=== PATIENT | male | born 1960 | race Caucasian/White ===

== ENCOUNTER 2023-04-22 01:47 | Day surgery (SDC) | payer OTHER, SELFPAY ==
[2023-04-15 09:43] VITALS: BMI 21.8
[2023-04-22 10:54] VITALS: BP 142/69; PULSE 74; RESP 17; TEMP 36.4; O2SAT 100; BMI 20.8
[2023-04-22] MEDS: LACTATED RINGERS 1,000 ML 150 ML IV CONT (11:02)
--- NOTE | 2023-04-22 11:32 | PM.HPGS ---
History of Present Illness History of Present Illness Consent: Risks, benefits, and alternatives have been discussed and questions answered. Patient agrees to proceed with procedure. Chief complaint: diarrhea, hemorrhage of anus and rectum Narrative: Unruly Conde is a 62 year old male Presents for colonoscopy. Patient reports over the last 3 months his bowel habits have changed. He now has loose, chunky stools in the morning. He will have several episodes associated with some blood admixed with this. Later in the day will have formed stools with no blood. He denies any significant abdominal pain. Reports no specific precipitating factors. He denies a fever. He does report frequent travel with work in a great deal of stress. He notes that his alcohol intake increased during this interval of time. He now is decreased his alcohol intake with some modest improvement. Patient presents today for colonoscopy. Family history is noncontributory. Review of Systems Review of Systems: Review of systems noncontributory. [facility] Past Medical History Medical History (Updated 04/22/23 @ 11:34 by Kali Melgar MD) Hyperlipidemia Surgical History Surgical History History of tonsillectomy Family History Family History Father Cerebrovascular accident Heart disease Sibling Family history of premature coronary heart disease Hypertension Grandparent Asthma Cancer Mother Hypertension Alzheimer disease Other Family history of cardiovascular disease Family history of coronary artery disease Social History Social History (Updated 02/26/23 @ 10:47 by Naima Meraz) Years smoked: 30 Smoking status: Former smoker Smoking end date: 09/22/07 Alcohol intake: current Drinks per week: 14 Substance use type: does not use Living arrangements: with family Occupation/Education: occupation Gender identity (if verbalized by the patient): Male Spiritual care concerns: No Meds Home Medications and Allergies Home Medications Medication Instructions Recorded Confirmed Type Neuro Health 2 cap BYMOUTH DAILY 01/15/23 04/22/23 History cholecalciferol (vitamin D3) 125 125 mcg PO DAILY 01/15/23 04/22/23 History mcg (5,000 unit) capsule coenzyme Q10 200 mg capsule (Co 300 mg PO DAILY 01/15/23 04/22/23 History Q-10) [id number] 120 mcg-lutein 1 tablet PO DAILY 01/15/23 04/22/23 History 150 mcg-herb 50 mg chewable tablet (Alive Men's 50 Plus Multivitamin) atorvastatin 20 mg tablet 20 mg PO DAILY #90 tabs 02/26/23 04/22/23 Rx inulin 2 gram chewable tablet 4 g PO DAILY 04/15/23 04/22/23 History (Fiber Gummies) niacin 500 mg tablet 500 mg PO DAILY 04/15/23 04/22/23 History turmeric 400 mg capsule 400 mg PO DAILY 04/15/23 04/22/23 History vitamin B complex (B 1 tablet PO DAILY 04/15/23 04/22/23 History Complex-Vitamin B12 tablet) Allergies Allergy/AdvReac Type Severity Reaction Status Date / Time No Known Allergies Allergy Verified 04/22/23 10:51 Vital Signs Vital Signs - 24 hr 04/22/23 10:54 Temperature 97.6 F Pulse Rate 74 Respiratory Rate 17 Blood Pressure 142/69 H Pulse Oximetry 100 Oxygen Delivery Room Air Exam Narrative: Physical exam reveals patient to be alert. Vital signs stable. HEENT exam is unremarkable. Patient is anicteric. Lungs are clear to auscultation and percussion. Heart is without murmur or extra sounds. Abdomen bowel sounds are present soft nontender with no organomegaly. Digital external rectal exam normal. Assessment and Plan Assessment and plan (1) Diarrhea: Code(s): R19.7 - Diarrhea, unspecified Status: Acute Assessment and Plan: Patient reports a change in his bowel habits with a tendency towards diarrhea stool. Plan for colonoscopy to assess more thoroughly. If diar
--- NOTE | 2023-04-22 11:40 | WPDANESEPPF ---
Anes - Initial Pre Proc Eval Procedure: Operation Date: 04/22/23 12:30 Proposed Procedures p Colonoscopy - Kali Melgar MD Date/Time: 04/22/23 11:40 Surgeon: Kali Melgar MD Pre Op Diagnosis: diarrhea, hemorrhage of anus and rectum Patient Data Age: 62 Gender: M Height: 1.78 m Weight: 65.9 kg Last Vital Signs Temp 97.6 F 04/22/23 10:54 Pulse 74 04/22/23 10:54 Resp 17 04/22/23 10:54 BP 142/69 H 04/22/23 10:54 Pulse Ox 100 04/22/23 10:54 O2 Del Method Room Air 04/22/23 10:54 Allergies Allergy/AdvReac Type Severity Reaction Status Date / Time No Known Allergies Allergy Verified 04/22/23 10:51 Home Medications Medication Instructions Recorded Confirmed Type Neuro Health 2 cap BYMOUTH DAILY 01/15/23 04/22/23 History cholecalciferol (vitamin D3) 125 125 mcg PO DAILY 01/15/23 04/22/23 History mcg (5,000 unit) capsule coenzyme Q10 200 mg capsule (Co 300 mg PO DAILY 01/15/23 04/22/23 History Q-10) [id number] 120 mcg-lutein 1 tablet PO DAILY 01/15/23 04/22/23 History 150 mcg-herb 50 mg chewable tablet (Alive Men's 50 Plus Multivitamin) atorvastatin 20 mg tablet 20 mg PO DAILY #90 tabs 02/26/23 04/22/23 Rx inulin 2 gram chewable tablet 4 g PO DAILY 04/15/23 04/22/23 History (Fiber Gummies) niacin 500 mg tablet 500 mg PO DAILY 04/15/23 04/22/23 History turmeric 400 mg capsule 400 mg PO DAILY 04/15/23 04/22/23 History vitamin B complex (B 1 tablet PO DAILY 04/15/23 04/22/23 History Complex-Vitamin B12 tablet) Patient hx anesthesia problems: none Family hx anesthesia problems: none Results Review: All pre-operative results and documents have been reviewed as part of the pre-operative evaluation. PMFSH Past Medical History Medical History (Updated 04/22/23 @ 11:34 by Kali Melgar MD) Hyperlipidemia Surgical History Surgical History History of tonsillectomy Family History Family History Father Cerebrovascular accident Heart disease Sibling Family history of premature coronary heart disease Hypertension Grandparent Asthma Cancer Mother Hypertension Alzheimer disease Other Family history of cardiovascular disease Family history of coronary artery disease Social History Social History (Updated 02/26/23 @ 10:47 by Naima Meraz) Years smoked: 30 Smoking status: Former smoker Smoking end date: 09/22/07 Alcohol intake: current Drinks per week: 14 Substance use type: does not use Living arrangements: with family Occupation/Education: occupation Gender identity (if verbalized by the patient): Male Spiritual care concerns: No Anes - Eval Final PreProcedure Day of Procedure 04/22/23 11:40 Patient weight: normal Heart: regular rate and rhythm Lungs: clear to auscultation Airway: Mallampati scale class II Neurological: alert and oriented Last oral intake: >/= 8 hours ASA classification: II Emergent: no Anesthetic plan: proceed Anesthesia type and monitoring: general GIVS and standard monitoring Results Review: All pre-operative results and documents have been reviewed as part of the pre-operative evaluation. Informed Consent: The patient's anesthetic plan and its attendant risks and benefits were discussed with the patient/family/POA. Questions were solicited and answers provided to the satisfaction of the patient/family/POA.
[2023-04-22 12:40] VITALS: BP 97/62; PULSE 77; RESP 18; O2SAT 98
[2023-04-22 12:50] VITALS: BP 115/76; PULSE 75; RESP 24; O2SAT 99
[2023-04-22 13:00] VITALS: BP 123/71; PULSE 63; RESP 18; O2SAT 100
== END 2023-04-22 13:19 | disposition home or self-care (01) ==
PROVIDERS: PCP Family Medicine; Visit Provider Internal Medicine Gastroenterology
PROC: 0DJD8ZZ Inspection of Lower Intestinal Tract, Via Natural or Artificial Opening Endoscopic (ICD-10-PCS; CPT 45378; principal; 2023-04-22 12:30)
DX: K51.30 Ulcerative (chronic) rectosigmoiditis without complications (principal); K64.8 Other hemorrhoids; K57.30 Diverticulosis of large intestine without perforation or abscess without bleeding; E78.5 Hyperlipidemia, unspecified; Z87.891 Personal history of nicotine dependence
CPT/HCPCS: 45380; 88305; J2704; J7120

== ENCOUNTER 2024-12-14 01:44 | Day surgery (SDC) | payer OTHER, SELFPAY ==
[2024-12-06 10:10] VITALS: BMI 24.5
[2024-12-14 07:07] VITALS: BP 157/85; PULSE 73; RESP 18; TEMP 36.1; O2SAT 99; BMI 22.7
[2024-12-14] MEDS: LACTATED RINGERS 1,000 ML 150 ML IV CONT (07:16)
--- NOTE | 2024-12-14 07:16 | WPDANESEPPF ---
Anes - Initial Pre Proc Eval Procedure: Operation Date: 12/14/24 08:00 Proposed Procedures p Colonoscopy - Tino Yeager MD Date/Time: 12/14/24 07:16 Surgeon: Tino Yeager MD Pre Op Diagnosis: Left sided colitis w/o complications Patient Data Age: 64 Gender: M Height: 1.78 m Weight: 71.8 kg Last Vital Signs Temp 36.1 C L 12/14/24 07:07 Pulse 73 12/14/24 07:07 Resp 18 12/14/24 07:07 BP 157/85 H 12/14/24 07:07 Pulse Ox 99 12/14/24 07:07 O2 Del Method Room Air 12/14/24 07:07 Allergies Allergy/AdvReac Type Severity Reaction Status Date / Time No Known Allergies Allergy Verified 12/14/24 07:06 Home Medications ?Medication ?Instructions ?Recorded ?Confirmed ?Type Neuro Health 2 cap BYMOUTH DAILY 01/15/23 12/14/24 History cholecalciferol (vitamin D3) 125 125 mcg PO DAILY 01/15/23 12/14/24 History mcg (5,000 unit) capsule coenzyme Q10 200 mg capsule (Co 400 mg PO DAILY 01/15/23 12/14/24 History Q-10) [id number] 120 mcg-lutein 1 tablet PO DAILY 01/15/23 12/14/24 History 150 mcg-herb 50 mg chewable tablet (Alive Men's 50 Plus Multivitamin) niacin 500 mg tablet 500 mg PO DAILY 04/15/23 12/14/24 History turmeric 400 mg capsule 400 mg PO DAILY 04/15/23 12/14/24 History vitamin B complex (B 1 tablet PO DAILY 04/15/23 12/14/24 History Complex-Vitamin B12 tablet) mesalamine 400 mg capsule (with 800 mg (2 x 400 mg) PO TID #180 ea 07/07/24 12/14/24 Rx delayed release tablets inside) (Delzicol) atorvastatin 20 mg tablet 20 mg PO DAILY #90 tabs 12/01/24 12/14/24 Rx psyllium husk 3.4 gram/5.4 gram 1 tbsp PO DAILY 12/06/24 12/14/24 History oral powder (Metamucil) Patient hx anesthesia problems: none Family hx anesthesia problems: none Results Review: All pre-operative results and documents have been reviewed as part of the pre-operative evaluation. [facility] Past Medical History Medical History (Updated 12/14/24 @ 07:18 by Ivan Arreola MD) Left sided ulcerative colitis Elevated liver enzymes Hyperlipidemia Surgical History Surgical History History of tonsillectomy Family History Family History Father Cerebrovascular accident Heart disease Sibling Family history of premature coronary heart disease Hypertension Grandparent Asthma Cancer Mother Hypertension Alzheimer disease Other Family history of cardiovascular disease Family history of coronary artery disease Social History Social History Years smoked: 30 Smoking status: Former smoker Smoking end date: 09/22/07 Alcohol intake: current Drinks per week: 14 Substance use type: does not use Living arrangements: with family Occupation/Education: occupation Gender identity (if verbalized by the patient): Male Spiritual care concerns: No Anes - Eval Final PreProcedure Day of Procedure 12/14/24 07:16 Patient weight: normal Heart: regular rate and rhythm Lungs: clear to auscultation Airway: Mallampati scale class II Neurological: alert and oriented Last oral intake: >/= 8 hours ASA classification: III Emergent: no Anesthetic plan: proceed Anesthesia type and monitoring: general GIVS and standard monitoring Results Review: All pre-operative results and documents have been reviewed as part of the pre-operative evaluation. Informed Consent: The patient's anesthetic plan and its attendant risks and benefits were discussed with the patient/family/POA. Questions were solicited and answers provided to the satisfaction of the patient/family/POA.
--- NOTE | 2024-12-14 08:09 | PM.HPGS ---
History of Present Illness History of Present Illness Consent: Risks, benefits, and alternatives have been discussed and questions answered. Patient agrees to proceed with procedure. Chief complaint: Left sided colitis w/o complications Narrative: Unruly Conde is a 64 year old male here for another colonoscopy, diagnosed with left-sided ulcerative colitis by colonoscopy in the spring. Doing well on mesalamine. Review of Systems Review of Systems: All systems reviewed & are unremarkable except as noted in HPI and below PMFSH Past Medical History Medical History (Updated 12/14/24 @ 08:10 by iTno Yeager MD) History of colitis Left sided ulcerative colitis Elevated liver enzymes Hyperlipidemia Surgical History Surgical History History of tonsillectomy Family History Family History Father Cerebrovascular accident Heart disease Sibling Family history of premature coronary heart disease Hypertension Grandparent Asthma Cancer Mother Hypertension Alzheimer disease Other Family history of cardiovascular disease Family history of coronary artery disease Social History Social History Years smoked: 30 Smoking status: Former smoker Smoking end date: 09/22/07 Alcohol intake: current Drinks per week: 14 Substance use type: does not use Living arrangements: with family Occupation/Education: occupation Gender identity (if verbalized by the patient): Male Spiritual care concerns: No Meds Home Medications and Allergies Home Medications ?Medication ?Instructions ?Recorded ?Confirmed ?Type Neuro Health 2 cap BYMOUTH DAILY 01/15/23 12/14/24 History cholecalciferol (vitamin D3) 125 125 mcg PO DAILY 01/15/23 12/14/24 History mcg (5,000 unit) capsule coenzyme Q10 200 mg capsule (Co 400 mg PO DAILY 01/15/23 12/14/24 History Q-10) [id number] 120 mcg-lutein 1 tablet PO DAILY 01/15/23 12/14/24 History 150 mcg-herb 50 mg chewable tablet (Alive Men's 50 Plus Multivitamin) niacin 500 mg tablet 500 mg PO DAILY 04/15/23 12/14/24 History turmeric 400 mg capsule 400 mg PO DAILY 04/15/23 12/14/24 History vitamin B complex (B 1 tablet PO DAILY 04/15/23 12/14/24 History Complex-Vitamin B12 tablet) mesalamine 400 mg capsule (with 800 mg (2 x 400 mg) PO TID #180 ea 07/07/24 12/14/24 Rx delayed release tablets inside) (Delzicol) atorvastatin 20 mg tablet 20 mg PO DAILY #90 tabs 12/01/24 12/14/24 Rx psyllium husk 3.4 gram/5.4 gram 1 tbsp PO DAILY 12/06/24 12/14/24 History oral powder (Metamucil) Allergies Allergy/AdvReac Type Severity Reaction Status Date / Time No Known Allergies Allergy Verified 12/14/24 07:06 Vital Signs Vital Signs - 24 hr 12/14/24 07:07 Temperature 97 F L Pulse Rate 73 Respiratory Rate 18 Blood Pressure 157/85 H Pulse Oximetry 99 Oxygen Delivery Room Air Exam Const: General: comfortable and no acute distress HENMT: Face/Nose/Sinus: Normal nares present Eyes: General: appearance normal, both eyes and all related structures Neck: Neck: no JVD Resp: Auscultation: clear to auscultation bilaterally Cardio: Rate: regular rate Rhythm: regular rhythm GI: Inspection: non-distended GI Palp: Yes Soft to palpation Skin: General skin exam: normal color Neuro: Speech: normal speech Extrem: General: normal to inspection Psych: Mental Status: mental status grossly normal Assessment and Plan Assessment and plan (1) History of colitis: Code(s): Z87.19 - Personal history of other diseases of the digestive system Status: Acute Assessment and Plan: colonoscopy
[2024-12-14 08:22] VITALS: BP 104/63; PULSE 78; RESP 27; O2SAT 98
[2024-12-14 08:32] VITALS: BP 104/32; PULSE 84; RESP 16; O2SAT 98
[2024-12-14 08:42] VITALS: BP 135/75; PULSE 70; RESP 16; O2SAT 98
== END 2024-12-14 08:59 | disposition home or self-care (01) ==
PROVIDERS: PCP Family Medicine; Referring Provider Internal Medicine Gastroenterology; Visit Provider Internal Medicine Gastroenterology
PROC: 0DJD8ZZ Inspection of Lower Intestinal Tract, Via Natural or Artificial Opening Endoscopic (ICD-10-PCS; CPT 45378; principal; 2024-12-14 08:00)
DX: K57.30 Diverticulosis of large intestine without perforation or abscess without bleeding (principal); K64.8 Other hemorrhoids; Z87.19 Personal history of other diseases of the digestive system; Z87.891 Personal history of nicotine dependence
CPT/HCPCS: 45380; 88305; J2003; J2704; J7120

== ENCOUNTER 2025-05-13 16:42 | Emergency (ER) | payer OTHER, SELFPAY ==
--- NOTE | ~2025-05-13 | CT_ITS ---
EXAMINATION: CT diagnostic chest w con DATE: 05/13/2025 18:35 INDICATION: Abnormal x-ray with nodule left lower lung TECHNIQUE: Computed tomography (CT) of the chest was performed without intravenous contrast. The dose-length product was 174.15 mGy-cm. Automated exposure control and iterative reconstruction technique were employed. COMPARISON: Chest x-ray dated 05/13/2025 FINDINGS: No significant vascular abnormality. Heart size normal. No significant pleural or pericardial effusion. Upper abdomen is unremarkable. No suspicious pulmonary nodules or masses. No pneumothorax. No focal consolidation. Nodular density seen on chest x-ray likely corresponds to prominent nipple shadow. No endobronchial lesions. Severe dextroscoliosis of the thoracolumbar spine. IMPRESSION: 1. No acute cardiopulmonary disease. Reviewed, dictated and finalized at location O.
--- NOTE | ~2025-05-13 | XR_ITS ---
EXAMINATION: XR chest 2V 05/13/2025 17:14 INDICATION: Syncope TECHNIQUE:Frontal and lateral images of the chest were obtained. COMPARISON: None available FINDINGS: There is a 1.2 cm nodular density projecting over the left lower lung. Differential includes pulmonary nodule or artifact from overlapping structures. No comparison studies are available. A chest CT is recommended. No pneumothorax. No pleural effusion. No free air under the diaphragm. No focal pulmonary consolidation. IMPRESSION: 1: There is a 1.2 cm nodular density projecting over the left lower lung. Differential includes pulmonary nodule or artifact from overlapping structures. No comparison studies are available. A chest CT is recommended. 2. No acute pulmonary process identified. Reviewed, dictated and finalized at location Q. IMPRESSION: 1: There is a 1.2 cm nodular density projecting over the left lower lung. Diff erential includes pulmonary nodule or artifact from overlapping structures. No comparison studies are available. A chest CT is recommended. 2. No acute pulmonary process identified.
--- NOTE | 2025-05-13 16:49 | ECG_ITS ---
Test Date: 2025-05-13 16:52:12 Measurements Intervals [place] Rate: 84 P: 54 OR: 163 QRS: 17 QRSD: 98 T: 57 QT: 353 QTc: 419 Interpretive Statements SINUS RHYTHM INCOMPLETE RIGHT BUNDLE BRANCH BLOCK BASELINE ARTIFACT- I, II, III, AVR, AVL, AVF BORDERLINE ECG No previous ECG available for comparison Electronically Signed On 05-13-2025 17:26:39 CDT by Diaz Tate D.O.
[2025-05-13 16:51] VITALS: BP 173/87; PULSE 90; RESP 12; TEMP 36.9; O2SAT 100
[2025-05-13 17:03] VITALS: PULSE 81
[2025-05-13 17:05] VITALS: BP 167/84; PULSE 84
[2025-05-13 17:06] VITALS: BP 171/93; BP 172/88; PULSE 78; PULSE 88
[2025-05-13 17:14] LABS: Hematocrit 38.5 % (42.0-52.0); Hemoglobin 12.6 g/dL (14.0-18.0); Immature Granulocyte Percent A 0.3 % (0-0.5); Lymphocytes Absolute Auto 1.83 K/mm3 (0.9-3.2); Mean Corpuscular HGB Conc 32.7 g/dl (32-36); Mean Corpuscular Hemoglobin 31.3 pg (26-34); Mean Corpuscular Volume 95.5 fl (80-100); Nucleated Red Blood Cells Absolute Auto 0.000 K/mm3 (0.0-0.012); Nucleated Red Blood Cells Perc 0.0 % (0.0-0.2); Platelet Count Result 258 k/mm3 (150-375); Red Blood Count 4.03 M/mm3 (4.6-6.20); White Blood Count 6.1 K/mm3 (4.5-10.0)
--- NOTE | 2025-05-13 17:29 | ED.ARRPALP ---
HPI - Arrhythmia/Palpitations General Chief Complaint: Arrhythmia/Palpitations Stated Complaint: near-syncope Time Seen by Provider: 05/13/25 17:08 History of Present Illness HPI narrative: 64-year-old male with history of hyperlipidemia had ulcerative colitis presents emergency department for an episode of lightheadedness that occurred at 3:00 p.m. today while playing golf. Patient states he are cough for several out to swing his bubbling had a episode of lightheadedness, blurred vision and ?seeing stars?. He denies syncope. He states he went and sat in the golf cart and his symptoms resolved within 1 minute. He states he finished the rest of his round, came home to his and told her what had happened. He then contacted his PCP who advised to come to the ED for further evaluation. The patient states he has not had any more episodes since and feels in his normal state of health. He denies any associated chest pain, shortness of breath, headache, focal numbness or weakness, abdominal pain, fever, cough or congestion, lower extremity edema. He does note he has chronic episodes of small amounts of bright red blood on the toilet paper after having a bowel movement that occurs about once a week when he strains. He otherwise denies any melena or large amounts of hematochezia. Related Data Home Medications ?Medication ?Instructions ?Recorded ?Confirmed ?Last Taken ?Type Neuro Health 2 cap BYMOUTH DAILY 01/15/23 12/14/24 12/13/24 History cholecalciferol (vitamin D3) 125 125 mcg PO DAILY 01/15/23 12/14/24 12/13/24 History mcg (5,000 unit) capsule coenzyme Q10 200 mg capsule (Co 400 mg PO DAILY 01/15/23 12/14/24 12/13/24 History Q-10) [id number] 120 mcg-lutein 1 tablet PO DAILY 01/15/23 12/14/24 12/13/24 History 150 mcg-herb 50 mg chewable tablet (Alive Men's 50 Plus Multivitamin) niacin 500 mg tablet 500 mg PO DAILY 04/15/23 12/14/24 12/13/24 History turmeric 400 mg capsule 400 mg PO DAILY 04/15/23 12/14/24 12/13/24 History vitamin B complex (B 1 tablet PO DAILY 07/12/14/24 12/13/24 History Complex-Vitamin B12 tablet) psyllium husk 3.4 gram/5.4 gram 1 tbsp PO DAILY 12/06/24 12/14/24 12/13/24 History oral powder (Metamucil) Allergies Allergy/AdvReac Type Severity Reaction Status Date / Time No Known Allergies Allergy Verified 05/13/25 16:44 Review of Systems Review of Systems: All systems reviewed & are unremarkable except as noted in HPI and below PMFSH Past Medical History Medical History Left sided colitis History of colitis Left sided ulcerative colitis Elevated liver enzymes Hyperlipidemia Surgical History Surgical History History of tonsillectomy Family History Family History Father Cerebrovascular accident Heart disease Sibling Family history of premature coronary heart disease Hypertension Grandparent Asthma Cancer Mother Hypertension Alzheimer disease Other Family history of cardiovascular disease Family history of coronary artery disease Social History Social History Smoking packs per day: 1 Smoking cigarettes per day: 20.0 Years smoked: 30 Smoking pack-years: 30.00 Smoking status: Former smoker Tobacco type: cigarettes Smoking end date: 09/22/07 Alcohol intake: current Drinks per week: 14 Substance use: never Substance use type: does not use Living arrangements: with family Occupation/Education: occupation Gender identity (if verbalized by the patient): Male Spiritual care concerns: No Exam Narrative: GENERAL: Well-appearing, well-nourished, and in no acute distress. HEAD: Normocephalic, atraumatic. EYES: PERRLA and EOMI. ENT: Nares clear, no rhinorrhea or epistaxis. Mucous membranes moist. Bilateral TMs are varela nonbulging with normal canals. NECK: Supple. CHEST: Clear to auscultation. No respiratory distress. HEART: Regular rate and rhythm. No murmur heard. Normal peripheral pulses. ABDOMEN: Soft, nontender, nondistended, normal active bowel sounds. EXTREMITIES: Normal range of motion. No edema. SKIN: Warm, dry, no rash. NEURO: No focal deficits. Alert and oriented x4. Cranial nerves 2-12 intact. Strength 5/5 BUE and BLE. Sensation intact throughout. No ataxia Course Vital Signs Vital signs: Vital Signs Temperature 98.5 F 05/13/25 16:51 Pulse Rate 90 05/13/25 16:51 Respiratory Rate 12 05/13/25 16:51 Blood Pressure 173/87 H 05/13/25 16:51 Pulse Oximetry 100 05/13/25 16:51 Oxygen Delivery Room Air 05/13/25 16:51 Temperature 98.5 F 05/13/25 16:51 Pulse Rate 77 05/13/25 17:59 Respiratory Rate 13 05/13/25 17:59 Blood Pressure 163/79 H 05/13/25 17:59 Pulse Oximetry 100 05/13/25 17:59 Oxygen Delivery Room Air 05/13/25 16:51 MDM - Arrhythmia/Palpitations MDM Narrative Medical decision making narrative: 64-year-old male history of hyperlipidemia and ulcerative colitis presents to the ED for a transient episode of lightheadedness that occurred at 1500 today while playing golf. Episode lasted 1 minute and self-resolved. Patient has not had any symptoms since and states he is in his normal state of health. He denies syncope. EKG shows normal sinus rhythm with rate of 84 ppm, normal CA interval, normal QRS duration, normal QTC, ischemic changes. Troponin is undetectable. D-dimer within normal limits, wells score is low risk. CBC shows no leukocytosis. Hemoglobin is 12.6 with normal MCV. Last hemoglobin on the chart was from 10/05/2024 and was 13.3. Patient does note rare and occasional bright red blood on the toilet paper after straining when having a bowel movement. He denies any current rectal bleeding or melena. I did offer to perform a rectal exam to evaluate for GI bleed as possible source of patient's symptoms however patient politely declined. Chemistries are unremarkable no electrolyte derangements. Magnesium is within normal limits. Chest x-ray shows no acute pulmonary process identified. Incidentally there is 1.2 cm nodular density projecting over the left lower lung with recommendations for a chest CT for further evaluation. Chest CT shows no acute cardiopulmonary disease. Radiologist notes that the nodular density seen on chest x-ray likely corresponds to prominent nipple shadow. Orthostatic vital signs are normal. Patient was updated on results. He is given a L of fluids. Patient remains asymptomatic and is ambulatory in the ED. He is very well appearing. Advised to follow-up closely with his PCP and discussed strict ED return precautions. He is agreeable with the plan verbalized understanding. Discharged in stable condition. Lab Data 05/13/25 17:04 05/13/25 17:04 Labs: Lab Results 05/13/25 Range/Units 17:04 WBC 6.1 (4.5-10.0) K/mm3 RBC 4.03 L (4.6-6.20) M/mm3 Hgb 12.6 L (14.0-18.0) g/dL Hct 38.5 L (42.0-52.0) % MCV 95.5 (80-100) fl MCH 31.3 (26-34) pg MCHC 32.7 (32-36) g/dl RDW 13.1 (11.5-14.5) % Plt Count 258 (150-375) k/mm3 MPV 9.2 (7.4-10.4) fl Immature Gran % (Auto) 0.3 (0-0.5) % Neut % (Auto) 57.6 (45.5-73.1) % Lymph % (Auto) 30.0 (18.3-44.2) % Mccormick % (Auto) 9.0 H (2.6-8.5) % Eos % (Auto) 2.8 (0-4.4) % Baso % (Auto) 0.3 (0.2-1.2) % Lymph # (Auto) 1.83 (0.9-3.2) K/mm3 Mccormick # (Auto) 0.6 (0.1-0.6) K/mm3 Eos # (Auto) 0.2 (0-0.3) K/mm3 Baso # (Auto) 0.0 (0.0-0.1) K/mm3 Abs Immat Gran (auto) 0.02 (0.00-0.031) K/mm3 Absolute Neuts (auto) 3.5 (1.3-6.7) K/mm3 Absolute Nucleated RBC 0.000 (0.0-0.012) K/mm3 Nucleated RBC % 0.0 (0.0-0.2) % PT 13.4 (11.1-14.7) Seconds INR 1.0 APTT 27.1 (22.3-36.8) Seconds D-Dimer < 0.27 (<0.48) ug/mL Sodium 137 (137-145) mmol/L Potassium 4.2 (3.4-5.0) mmol/L Chloride 102 (98-107) mmol/L Carbon Dioxide 26 (22-30) mmol/L Anion Gap 9 (4-12) mmol/L BUN 18 (9-20) mg/dL Creatinine 0.97 (0.7-1.3) mg/dL Estim Creat Clear Calc 67 ml/min Estimated GFR > 60 (59 - ) Glucose 113 H (65-110) mg/dL Calcium 9.5 (8.4-10.2) mg/dL Magnesium 1.9 (1.6-2.3) mg/dL Total Bilirubin 0.6 (0.2-1.3) mg/dL AST 36 (17-59) U/L ALT 37 (6-50) U/L Alkaline Phosphatase 86 (38-126) U/L Troponin I < 0.012 (0.000-0.034) ng/mL Total Protein 7.6 (6.3-8.2) g/dL Albumin 4.6 (3.5-5.1) g/dL Discharge Plan Discharge Clinical Impression: Episodic lightheadedness, Normochromic normocytic anemia Patient Disposition: Home Condition: Stable Instructions: Antibiotic Form, Lightheadedness (ED) Additional Instructions: You were evaluated in the emergency department for an episode of lightheadedness. Your workup here is reassuring. Your found have a hemoglobin of 12.6 which is mildly low. Please follow-up with your primary care provider regarding this. If you develop return of your lightheadedness, chest pain or shortness of breath, focal numbness or weakness, loss of consciousness, bright red blood in her stools or dark tarry stools, or other concerning symptoms please return to the emergency department. Make sure to stay hydrated. Patient Language: Palestinian Prescriptions: No Action Neuro Health capsule 2 cap BYMOUTH DAILY Alive Men's 50 Plus Multivit 120 mcg-150 mcg -50 mg tablet,chewable 1 tablet PO DAILY coenzyme Q10 [Co Q-10] 200 mg capsule 400 mg PO DAILY cholecalciferol (vitamin D3) 125 mcg (5,000 unit) capsule 125 mcg PO DAILY Metamucil 3.4 gram/5.4 gram powder 1 tbsp PO DAILY Rx Instructions: mix into at least 8 oz of water or juice before administering niacin 500 mg Tablet 500 mg PO DAILY vitamin B complex [B Complex-Vitamin B12] Tablet 1 tablet PO DAILY turmeric 400 mg Capsule 400 mg PO DAILY atorvastatin 20 mg tablet 20 mg PO DAILY Qty: 90 1RF mesalamine 400 mg capsule (with del rel tablets) 800 mg PO TID Qty: 180 12RF Follow-up/Referrals: Wilder Kwon MD [Primary Care Provider, Family Practice]
[2025-05-13 17:34] LABS: Alanine Aminotransferase 37 U/L (6-50); Albumin Level 4.6 g/dL (3.5-5.1); Alkaline Phosphatase 86 U/L (38-126); Anion Gap 9 mmol/L (4-12); Aspartate Amino Transferase 36 U/L (17-59); Bilirubin,Total 0.6 mg/dL (0.2-1.3); Blood Urea Nitrogen 18 mg/dL (9-20); Calcium 9.5 mg/dL (8.4-10.2); Carbon Dioxide 26 mmol/L (22-30); Chloride 102 mmol/L (98-107); Estimated CRCL calculation 67 ml/min; Estimated Glomerular Filt Rate > 60; Glucose 113 mg/dL (65-110); Potassium 4.2 mmol/L (3.4-5.0); Sodium 137 mmol/L (137-145); Total Protein 7.6 g/dL (6.3-8.2)
[2025-05-13 17:44] LABS: Magnesium 1.9 mg/dL (1.6-2.3)
[2025-05-13 17:55] LABS: INR 1.0; Prothrombin Time 13.4 Seconds (11.1-14.7); Troponin I < 0.012 ng/mL (0.000-0.034)
[2025-05-13 17:56] LABS: Partial Thromboplastin Time 27.1 Seconds (22.3-36.8)
[2025-05-13] MEDS: SODIUM CHLORIDE 0.9% IV 1,000 ML 999 ML IV CONT (17:58)
[2025-05-13 17:59] VITALS: BP 163/79; PULSE 77; RESP 13; O2SAT 100
[2025-05-13 19:42] VITALS: BP 162/86; PULSE 67; RESP 18; O2SAT 95
== END 2025-05-13 19:41 | disposition home or self-care (01) ==
PROVIDERS: Emergency Medicine; Emergency Provider Physician Assistant; PCP Family Medicine
DX: R42 Dizziness and giddiness (principal); D64.9 Anemia, unspecified; E78.5 Hyperlipidemia, unspecified; K51.90 Ulcerative colitis, unspecified, without complications; Z87.891 Personal history of nicotine dependence; Z79.899 Other long term (current) drug therapy; I45.10 Unspecified right bundle-branch block
CPT/HCPCS: 36415; 71046; 71260; 80053; 83735; 84484; 85025; 85380; 85610; 85730; 93005; 96360; 99284; J7030; Q9967